=== PATIENT | female | born 1995 | race African-American/Black ===

== ENCOUNTER 2020-02-06 10:04 | Outpatient (CLI) | payer OTHER, SELFPAY ==
[2020-02-06] VITALS (10 sets, daily range): BP systolic 145–151; BP diastolic 80–91; PULSE 88–99; TEMP 36.7
[2020-02-06 11:23] LABS: Basophils Percent Auto 0.2 % (0.2-1.2); Eosinophils Absolute Auto 0.1 K/mm3 (0-0.3); Eosinophils Percent Auto 2.4 % (0-4.4); Hematocrit 24.7 % (37.0-47.0); Hemoglobin 8.4 g/dL (12.0-15.0); Immature Granulocyte Absolute 0.03 K/mm3 (0.00-0.031); Immature Granulocyte Percent A 0.5 % (0-0.5); Lymphocytes Percent Auto 23.9 % (18.3-44.2); Mean Corpuscular Volume 91.1 fl (80-100); Mean Platelet Volume 10.7 fl (7.4-10.4); Monocytes Absolute Auto 0.3 K/mm3 (0.1-0.6); Monocytes Percent Auto 5.8 % (2.6-8.5); Neutrophils Absolute Auto 3.9 K/mm3 (1.3-6.7); Neutrophils Percent Auto 67.2 % (45.5-73.1); Platelet Count Result 228 k/mm3 (150-375); Red Blood Count 2.71 M/mm3 (4.2-5.4); Red Cell Distribution Width 12.9 % (11.5-14.5); White Blood Count 5.9 K/mm3 (4.5-10.0)
[2020-02-06 11:27] LABS: Add Urine Microscopic? YES; Appearance Urine Cloudy (Clear); Bacteria Urine Trace /hpf; Bilirubin Urine Negative (Negative); Blood Urine Negative (Negative); Color Urine Yellow (Yellow); Glucose Urine UA Negative (Negative); Ketones Urine Negative (Negative); Leukocyte Esterase Ur 1+ LEU/UL (NEGATIVE); Mucus Urine Rare /lpf; Nitrate Urine Negative (Negative); Protein Urine 2+ mg/dL (Negative); Specific Grav Ur 1.014 (1.001-1.035); Squamous Epithelial Cell Urine Many /hpf (Few); Urobilinogen Urine Negative mg/dL (<2.0)
[2020-02-06 11:34] LABS: Creatinine Urine 145.3 mg/dL; Total Protein Urine Random 40 mg/dL
[2020-02-06 11:44] LABS: Alanine Aminotransferase 15 U/L (4-35); Albumin Level 3.7 g/dL (3.5-5.1); Alkaline Phosphatase 87 U/L (38-126); Aspartate Amino Transferase 34 U/L (14-36); Bilirubin,Total 0.3 mg/dL (0.2-1.3); Blood Urea Nitrogen 4 mg/dL (7-17); Calcium 8.5 mg/dL (8.4-10.2); Carbon Dioxide 24 mmol/L (22-30); Chloride 105 mmol/L (98-107); Estimated Glomerular Filt Rate > 60; Glucose 122 mg/dL (65-105); Potassium 2.8 mmol/L (3.4-5.0); Sodium 135 mmol/L (137-145); Uric Acid 6.6 mg/dL (2.5-7.5)
[2020-02-06 12:15] LABS: Glucose 1 Hour PP 50gm Dose 130 mg/dL
[2020-02-06 12:20] LABS: HIV 1/2 Ab P24 Ag Result Negative (Negative)
[2020-02-06] MEDS: BETAMETHASONE SOD PHOS/ACETATE 30 MG/5 ML VIAL 12 MG IM (13:20)
[2020-02-06] MEDS: KCL 40 MEQ/0.45% NS 1,000 ML 150 ML IV CONT (13:47)
--- NOTE | 2020-02-06 17:46 | PC.NURSE ---
1025--PT SENT FROM OFFICE FOR HIP EVAL. PT DENIES ANY PAIN IN ABDOMEN, HEADACHE OR VISION CHANGE.
[2020-02-07 07:53] LABS: Rapid Plasma Reagin Non-Reactive (NonReactive)
[2020-02-07] MEDS: RHO(D) IMMUNE GLOBULIN 300 MCG SYRINGE IM (13:08)
== END 2020-02-06 18:02 | disposition home or self-care (01) ==
LOC: ANHOBOP 10:10 → ANHOBPP 10:13
PROVIDERS: Visit Provider Obstetrics & Gynecology
DX: O13.9 Gestational [pregnancy-induced] hypertension without significant proteinuria, unspecified trimester (principal); Z3A.00 Weeks of gestation of pregnancy not specified; Z36.89 Encounter for other specified antenatal screening; O36.0130 Maternal care for anti-D [Rh] antibodies, third trimester, not applicable or unspecified
CPT/HCPCS: 36415; 80053; 81001; 82570; 82947; 84156; 84550; 85025; 85461; 86592; 86703; 87086; 87088; 90384; 96372; 99199; G0432; J0702; J2790

== ENCOUNTER 2020-02-07 12:25 | Outpatient (CLI) | payer OTHER, SELFPAY ==
[2020-02-07 12:47] VITALS: BMI 29.0
[2020-02-07] MEDS: BETAMETHASONE SOD PHOS/ACETATE 30 MG/5 ML VIAL 12 MG IM (13:14)
[2020-02-07 13:48] LABS: Collection Time Urine 24 HOURS
[2020-02-07 13:54] VITALS: BP 148/86; PULSE 84
[2020-02-07 13:56] LABS: Creatinine Urine 46.7 mg/dL; Patient Weight 158 Lbs; Total Protein Urine Random 23 mg/dL
[2020-02-07 14:17] LABS: Creatinine Clearance Urine 184.5 ml/min (75-125); Specific Gravity Ur 1.005; Total Volume 24 Hour Urine 3400 ml
[2020-02-07 16:33] VITALS: BP 148/86; PULSE 84
[2020-02-07 17:03] LABS: Total Protein Urine 24 Hr 17 mg/24hr (0-149)
== END 2020-02-07 12:26 | disposition home or self-care (01) ==
LOC: ANHOBOP 12:39
PROVIDERS: Visit Provider Obstetrics & Gynecology
DX: O13.9 Gestational [pregnancy-induced] hypertension without significant proteinuria, unspecified trimester (principal); Z3A.00 Weeks of gestation of pregnancy not specified
CPT/HCPCS: 59025; 81050; 82575; 84156; 96372; J0702

== ENCOUNTER 2020-03-19 12:04 | Inpatient (IN) | payer OTHER, SELFPAY ==
[2020-03-19] VITALS (32 sets, daily range): BP systolic 132–186; BP diastolic 82–115; PULSE 74–91; RESP 16–18; TEMP 36.5–37.3; O2SAT 100; BMI 29.0
[2020-03-19 12:54] LABS: Basophils Percent Auto 0.2 % (0.2-1.2); Eosinophils Absolute Auto 0.1 K/mm3 (0-0.3); Eosinophils Percent Auto 1.8 % (0-4.4); Hematocrit 25.6 % (37.0-47.0); Hemoglobin 8.7 g/dL (12.0-15.0); Immature Granulocyte Absolute 0.02 K/mm3 (0.00-0.031); Immature Granulocyte Percent A 0.4 % (0-0.5); Lymphocytes Absolute Auto 1.59 K/mm3 (0.9-3.2); Lymphocytes Percent Auto 31.9 % (18.3-44.2); Mean Corpuscular Hemoglobin 31.1 pg (26-34); Mean Corpuscular Volume 91.4 fl (80-100); Mean Platelet Volume 10.7 fl (7.4-10.4); Monocytes Absolute Auto 0.4 K/mm3 (0.1-0.6); Monocytes Percent Auto 8.4 % (2.6-8.5); Neutrophils Absolute Auto 2.9 K/mm3 (1.3-6.7); Neutrophils Percent Auto 57.3 % (45.5-73.1); Platelet Count Result 196 k/mm3 (150-375); Red Cell Distribution Width 13.1 % (11.5-14.5)
[2020-03-19 13:06] LABS: Alanine Aminotransferase 11 U/L (4-35); Albumin Level 3.6 g/dL (3.5-5.1); Alkaline Phosphatase 143 U/L (38-126); Aspartate Amino Transferase 25 U/L (14-36); Bilirubin,Total 0.2 mg/dL (0.2-1.3); Blood Urea Nitrogen 7 mg/dL (7-17); Calcium 7.9 mg/dL (8.4-10.2); Carbon Dioxide 24 mmol/L (22-30); Chloride 106 mmol/L (98-107); Estimated Glomerular Filt Rate > 60; Glucose 86 mg/dL (65-105); Potassium 3.2 mmol/L (3.4-5.0); Sodium 137 mmol/L (137-145); Uric Acid 7.4 mg/dL (2.5-7.5)
[2020-03-19 13:10] LABS: Creatinine Urine 115.2 mg/dL; Total Protein Urine Random 24 mg/dL
[2020-03-19 14:08] LABS: Add Urine Microscopic? YES; Appearance Urine Cloudy (Clear); Bacteria Urine Trace /hpf; Bilirubin Urine Negative (Negative); Blood Urine Negative (Negative); Color Urine Yellow (Yellow); Glucose Urine UA Negative (Negative); Ketones Urine Negative (Negative); Leukocyte Esterase Ur 1+ LEU/UL (NEGATIVE); Mucus Urine Rare /lpf; Nitrate Urine Negative (Negative); Protein Urine 1+ mg/dL (Negative); Specific Grav Ur 1.013 (1.001-1.035); Squamous Epithelial Cell Urine Many /hpf (Few); Urobilinogen Urine Negative mg/dL (<2.0)
[2020-03-19] MEDS: LACTATED RINGERS 1,000 ML 75 ML IV CONT (15:33)
[2020-03-19] MEDS: MAGNESIUM SULF 4 GM/WATER100ML 4 GM/100 ML BAG IVPB (15:34)
[2020-03-19] MEDS: LABETALOL HCL INJ 100 MG/20 ML VIAL 20 MG IV PUSH (15:36)
--- NOTE | 2020-03-19 15:43 | LDADM ---
This patient, Ghada Tolentino, was admitted to [facility] on 03/19/20 at 12:04. Plans for labor, pain management and were discussed with patient. Patient/family oriented to hospital policies and general routines including ID bracelet, bed and alarms, visiting hours, pain management, procedures, bathroom and other care routines, personal items, smoking policy, room service/diet and guest tray routines, infant security routines, and visiting hours. Patient/Family are encouraged to report perceived risks to care and to ask questions if they do not understand what they are told or what they should do. See OBIX for further documentation.
[2020-03-19] MEDS: MAGNESIUM SULF 20GM/WATER500ML 500 ML 50 MG IV CONT (16:18)
[2020-03-19] MEDS: LABETALOL HCL 100 MG TABLET 300 MG PO (19:53)
[2020-03-19 20:15] LABS: Mean Platelet Volume 11.1 fl (7.4-10.4); Platelet Count Result 211 k/mm3 (150-375)
[2020-03-19 20:34] LABS: Alanine Aminotransferase 14 U/L (4-35); Albumin Level 3.6 g/dL (3.5-5.1); Alkaline Phosphatase 166 U/L (38-126); Aspartate Amino Transferase 40 U/L (14-36); Bilirubin,Total 0.4 mg/dL (0.2-1.3); Blood Urea Nitrogen 7 mg/dL (7-17); Calcium 7.8 mg/dL (8.4-10.2); Carbon Dioxide 23 mmol/L (22-30); Chloride 103 mmol/L (98-107); Estimated CRCL calculation 101 ml/min; Estimated Glomerular Filt Rate > 60; Glucose 112 mg/dL (65-105); Sodium 135 mmol/L (137-145); Uric Acid 7.1 mg/dL (2.5-7.5)
--- NOTE | 2020-03-19 22:11 | PC.NURSE ---
Addendum entered by Earlene Sutton RN 03/19/20 22:23: transfer* Original Note: marva noble cnm on phone w [facility]o giving pt report and obtaining consent for pt sophie
--- NOTE | 2020-03-19 22:17 | P.PNOB_ITS ---
Pain Control Date/time seen: 03/19/20 22:17 pt notified RN of desire to transfer to [facility] due to prematurity and current diagnosis of preeclampsia and plan for delivery. Dr. Ledesma notified and ok for transfer. Gildardo Harris CNM spoke with Dr. [address] and pt was accepted for transfer 1. preeclampsia BP stable AST 41/PLT 167 2gm magnesium sulfate asymptomatic 2. hx of previous with classical uterine incision 3. status reassuring category 1 FHR, rare contractions Rn gave full report to program manager transportation
--- NOTE | 2020-03-19 22:24 | PC.NURSE ---
report given to vero granados [facility] l&
[2020-03-20 07:12] LABS: Rapid Plasma Reagin Non-Reactive (NonReactive)
--- NOTE | 2020-03-22 07:30 | P.DS_ITS ---
DS: Admitting Diagnosis Admitting Diagnosis Admitting Diagnosis: Encounter for supervision of normal , unspecified, third trimester, pt transferred OB - DS: Summary OB Procedures : None OB Procedures Intrapartum: Other (pt transferred) OB Procedures: : Other (pt transferred) Time Spent with Patient Time attestation: Total time spent providing and/or coordinating discharge services: Discharge Plan Discharge Attending physician on discharge: Kathy Ledesma Consulting providers: Eleonora Harris Discharging Clinician: Eleonora Harris Patient Disposition: Acute Care Hospital Activity: other - see discharge instructions Diet: other - see discharge instructions Wound Care Instructions: other - see discharge instructions Discharge Instructions: pt transferred Follow-up/Referrals: Eleonora Harris, CNM [Certified Nurse Jack Machine Operator] - Discharge Medications: Discontinued 28-800 mg-mcg Tablet 1 tablet PO DAILY RF: 0 Date of admission: 03/19/20 12:04 Primary Care Provider: PHYSICIAN,OVERLOCK SEWING MACHINE OPERATOR Admitting Provider: Kathy Ledesma Discharge Date/Time: 03/19/20 23:30 Attending physician on admission: Kathy Ledesma
--- NOTE | 2020-04-11 07:30 | TS_ITS ---
DS: Admitting Diagnosis Admitting Diagnosis Admitting Diagnosis: Encounter for supervision of normal , unspecified, third trimester, pt transferred OB - DS: Summary OB Procedures : None OB Procedures Intrapartum: Other (pt transferred) OB Procedures: : Other (pt transferred) Time Spent with Patient Time attestation: Total time spent providing and/or coordinating discharge services: Discharge Plan Discharge Attending physician on discharge: Kathy Ledesma Consulting providers: Eleonora Harris Discharging Clinician: Eleonora Harris Patient Disposition: Acute Care Hospital Activity: other - see discharge instructions Diet: other - see discharge instructions Wound Care Instructions: other - see discharge instructions Discharge Instructions: pt transferred Follow-up/Referrals: Eleonora Harris, CNM [Certified Nurse Community Service Specialist] - Discharge Medications: Discontinued 28-800 mg-mcg Tablet 1 tablet PO DAILY RF: 0 Date of admission: 03/19/20 12:04 Primary Care Provider: PHYSICIAN,NOODLE MAKER Admitting Provider: Kathy Ledesma Discharge Date/Time: 03/19/20 23:30 Attending physician on admission: Kathy Ledesma MTDD
--- NOTE | 2020-04-12 07:22 | WPDOBADMIT ---
Obstetrics - Admit Note Admission Note: record reviewed. No pertinent additions to the history and/or any subsequent changes in the physical findings that are not consistent with the expected course of the were found. pt was admitted by Dr. Ledesma for preeclampsia. Additions to the history and/or subsequent changes in the physical findings follow. None.
== END 2020-03-19 23:30 | disposition short-term general hospital (02) | DRG 566 ==
LOC: ANHOBOP 12:11 → ANHOBPP 12:26 → ANHOBOP 14:39 → ANHOBPP 14:39 → ANHLDR 15:17 → ANHOBPP 15:31
PROVIDERS: Admitting Provider Obstetrics & Gynecology; Visit Provider Obstetrics & Gynecology
DX: O14.90 Unspecified pre-eclampsia, unspecified trimester (principal); Z3A.00 Weeks of gestation of pregnancy not specified
CPT/HCPCS: 36415; 80053; 81001; 82570; 84156; 84550; 85025; 85049; 86592; 86850; 86880; 86900; 86901; 86902; 87086; A9270; J3475; J7120

== ENCOUNTER 2024-06-25 15:59 | Emergency (ER) | payer OTHER, SELFPAY ==
--- NOTE | ~2024-06-25 | XR_ITS ---
EXAMINATION: XR chest 2V Exam Date/Time: 06/25/2024 19:05 CDT HISTORY: shortness of breath Comparison: 09/29/2011. RESULT: Lines, tubes, and devices: None. Lungs and pleura: Clear. Cardiomediastinal silhouette: Stable. Other: No acute osseous or upper abdominal finding. IMPRESSION: No acute cardiopulmonary process. Reviewed, dictated and finalized at location K.
--- NOTE | ~2024-06-25 | CT_ITS ---
EXAMINATION: CTA chest PE abdomen pel DATE: 06/25/2024 21:25 INDICATION: elevated d.dimer, shortness of breath, elevated liver enzyme TECHNIQUE: Computed tomography angiography (CTA) of the chest was performed with 100 mL Omnipaque-350 intravenous contrast timed to evaluate the pulmonary arteries, followed by portal venous phase imagi ng of the abdomen and pelvis. Coronal maximum intensity projection 3D-reconstructions were created by the technologist. The dose-length product (DLP) was 504.74 mGy-cm. Automated exposure control and it erative reconstruction technique were employed. COMPARISON: None. FINDINGS: CHEST: Lung parenchyma and airways: Clear. Pleura: Unremarkable. Thoracic inlet, axillae and chest wall: No thyroid or soft tissue mass. Thoracic aorta: No significant dilation. No dissection. Mediastinum: Normal. Heart and pericardium: Normal. Coronary artery calcifications: Absent. Thoracic bones: No acute osseous finding. Pulmonary arteries: Study quality: Adequate. No pulmonary emboli detected. ABDOMEN/PELVIS: Liver: Normal. Biliary/Gallbladder: No bile duct dilation. Pancreas: No mass or duct dilation. Spleen: Normal. Adrenals:No mass. Kidneys: Severe atrophy of left kidney. Multiple lobulations in the right kidney. Partially dup licated right collecting system. GI tract: No small or large bowel dilation. Normal appendix. Mesentery/Peritoneum: No ascites, mass, or free air. Retroperitoneum: No mass. Pelvis: Pelvic organs are within normal limits. Soft Tissues: Soft tissues and body wall unremarkable. Abdominopelvic bones: No acute osseous finding. IMPRESSION: No CT evidence of acute pulmonary embolus. No acute abdominopelvic process detected. Reviewed, dictated and finalized at location K.
[2024-06-25 16:02] VITALS: BP 172/115; PULSE 80; RESP 17; TEMP 36.4; O2SAT 100
--- NOTE | 2024-06-25 17:54 | ECG_ITS ---
Test Date: 2024-06-25 18:07:07 Measurements Intervals [place] Rate: 87 P: 71 MA: 145 QRS: 45 QRSD: 87 T: 55 QT: 370 QTc: 447 Interpretive Statements SINUS RHYTHM No previous ECG available for comparison Electronically Signed On 06-25-2024 20:38:21 CDT by Jose Perez M.D.
[2024-06-25 18:07] VITALS: BP 152/109; PULSE 91; RESP 20; O2SAT 100
[2024-06-25 18:11] VITALS: RESP 20; O2SAT 100
[2024-06-25 18:13] LABS: Basophils Percent Auto 0.4 % (0.2-1.2); Eosinophils Absolute Auto 0.1 K/mm3 (0-0.3); Eosinophils Percent Auto 1.3 % (0-4.4); Hematocrit 34.2 % (37.0-47.0); Hemoglobin 11.7 g/dL (12.0-15.0); Immature Granulocyte Absolute 0.01 K/mm3 (0.00-0.031); Immature Granulocyte Percent A 0.2 % (0-0.5); Lymphocytes Absolute Auto 2.01 K/mm3 (0.9-3.2); Mean Corpuscular HGB Conc 34.2 g/dl (32-36); Mean Corpuscular Hemoglobin 30.5 pg (26-34); Mean Corpuscular Volume 89.1 fl (80-100); Mean Platelet Volume 10.5 fl (7.4-10.4); Monocytes Absolute Auto 0.2 K/mm3 (0.1-0.6); Neutrophils Absolute Auto 2.2 K/mm3 (1.3-6.7); Neutrophils Percent Auto 49.1 % (45.5-73.1); Platelet Count Result 223 k/mm3 (150-375); Red Blood Count 3.84 M/mm3 (4.2-5.4); Red Cell Distribution Width 12.2 % (11.5-14.5); White Blood Count 4.6 K/mm3 (4.5-10.0)
[2024-06-25 18:24] LABS: Alanine Aminotransferase 26 U/L (6-35); Albumin Level 4.3 g/dL (3.5-5.1); Alkaline Phosphatase 86 U/L (38-126); Anion Gap 12 mmol/L (4-12); Aspartate Amino Transferase 71 U/L (14-36); Blood Urea Nitrogen 12 mg/dL (7-17); Calcium 8.6 mg/dL (8.4-10.2); Carbon Dioxide 23 mmol/L (22-30); Chloride 97 mmol/L (98-107); Estimated CRCL calculation 72 ml/min; Estimated Glomerular Filt Rate > 60; Glucose 96 mg/dL (65-110); Potassium 3.1 mmol/L (3.4-5.0); Sodium 132 mmol/L (137-145)
[2024-06-25 18:36] LABS: Troponin I < 0.012 ng/mL (0.000-0.034)
--- NOTE | 2024-06-25 18:59 | ED.GENADULT ---
HPI - General Adult General Chief complaint: Recheck/Abnormal Lab/Rx Stated complaint: high blood pressure Time Seen by Provider: 06/25/24 18:04 History of Present Illness HPI narrative: Patient is a 29-year-old female who presents to the ER with hyperventilation and panic attacks the last few days. She reports she has history anxiety and high blood pressure. Patient reports she is supposed to take blood pressure medication but does not a primary care provider at this time. The last couple of days patient's experience blurry vision, tingling, tachypnea, and facial numbness. She denies headaches , but does endorse lower extremity redness periodically. Patient reports she has her menstrual straight cycle at this time but is also sexually active and does use any form of contraceptive. Patient denies chest pain, abdominal pain, or other signs/ symptoms of illness. Related Data Allergies Allergy/AdvReac Type Severity Reaction Status Date / Time No Known Allergies Allergy Verified 06/25/24 16:06 Review of Systems Review of Systems: All systems reviewed & are unremarkable except as noted in HPI and below PMFSH Past Medical History Medical History Kidney disease pt has 1 kidney Preeclampsia with history of pre-term labor Surgical History Surgical History Delivery by section Family History Family History Other Hypertension Social History Social History Smoking packs per day: 0.4 Smoking cigarettes per day: 8.0 Years smoked: 6 Smoking pack-years: 2.40 Smoking status: Current every day smoker Tobacco type: cigarettes Second hand tobacco smoke exposure: Yes Alcohol intake: never Substance use: never Substance use type: does not use Living arrangements: alone Occupation/Education: occupation 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 HEAD: Normocephalic, atraumatic. NECK: Supple. No adenopathy, no masses. RESPIRATORY: Airway patent, respirations nonlabored. Clear to auscultation bilaterally, no rales, rhonchi, wheezing. CARDIOVASCULAR: irregular rate and regular rhythm without murmurs, rubs, or gallops. Peripheral pulses 2+ and equal bilaterally. ABDOMINAL: Soft, nontender, nondistended, no hepatosplenomegaly. Normoactive BS. MUSCULOSKELETAL: Moves all extremities. Strength/ROM intact without gross deformities. SKIN: Warm, dry, normal color. No rashes. NEURO: A&O X3. Speech clear. Cranial nerves II-XII grossly intact. No ataxic movements. PSYCHIATRIC: Appropriate mood and affect. Normal interaction. Course Vital Signs Vital signs: Vital Signs Temperature 36.4 C L 06/25/24 16:02 Pulse Rate 80 06/25/24 16:02 Respiratory Rate 17 06/25/24 16:02 Blood Pressure 172/115 H 06/25/24 16:02 Pulse Oximetry 100 06/25/24 16:02 Oxygen Delivery Room Air 06/25/24 16:02 Temperature 36.4 C L 06/25/24 16:02 Pulse Rate 88 06/25/24 21:42 Respiratory Rate 18 06/25/24 21:42 Blood Pressure 131/78 06/25/24 21:42 Pulse Oximetry 98 06/25/24 21:42 Oxygen Delivery Room Air 06/25/24 16:02 Medical Decision Making MDM Narrative Medical decision making narrative: Patient is a 29-year-old female who presents to the ER with hyperventilation and panic attacks the last few days. She reports she has history anxiety and high blood pressure. Patient reports she is supposed to take blood pressure medication but does not a primary ca
[2024-06-25] MEDS: POTASSIUM CHLORIDE 20 MEQ ER TABLET 40 MEQ PO (19:20)
[2024-06-25] MEDS: SODIUM CHLORIDE 0.9% IV 1,000 ML 999 ML IV CONT (19:20)
[2024-06-25 20:11] LABS: D Dimer 0.83 ug/mL (<0.48)
[2024-06-25 21:42] VITALS: BP 131/78; PULSE 88; RESP 18; O2SAT 98
== END 2024-06-25 21:45 | disposition left against medical advice (07) ==
PROVIDERS: Emergency Medicine; Emergency Provider Registered Nurse
DX: F41.9 Anxiety disorder, unspecified (principal); I12.9 Hypertensive chronic kidney disease with stage 1 through stage 4 chronic kidney disease, or unspecified chronic kidney disease; N18.1 Chronic kidney disease, stage 1; R06.02 Shortness of breath; F17.210 Nicotine dependence, cigarettes, uncomplicated; T46.5X6A Underdosing of other antihypertensive drugs, initial encounter; Z91.128 Patient's intentional underdosing of medication regimen for other reason
CPT/HCPCS: 36415; 71046; 71275; 74177; 80053; 84484; 85025; 85380; 93005; 96360; 99284; A9270; J7030; Q9967